=== PATIENT | male | born 1950 | race Asian ===

== ENCOUNTER → 2016-07-06 | Outpatient (CLI) | payer MEDICARE, OTHER ==
[~2016-07-06] MED LIST: ACET-66 GT; ASPI-825 PO; METF500T4 PO; TAMS0.4C32 GT
== END | disposition home or self-care (01) ==
LOC: RADPV 09:32
PROVIDERS: ATTEND Internal Medicine Nephrology
DX: N18.2 Chronic kidney disease, stage 2 (mild) (principal); N28.89 Other specified disorders of kidney and ureter
CPT/HCPCS: 76770

== ENCOUNTER → 2016-08-05 | Outpatient (CLI) | payer MEDICARE, OTHER ==
[~2016-08-05] MED LIST changes: +ASPI81 PO; +ATOR10TA84 PO; -TAMS0.4C32 GT; +TAMS0.4C32 PO
[2016-08-05 10:44] LABS: BASOPHILS % (AUTO) 0.6 % (0.0-2.0); EOSINOPHILS % (AUTO) 6.1 % (1.0-6.0); HEMATOCRIT 43.9 % (41-53); HEMOGLOBIN 14.2 g/dL (13.5-17.5); LYMPHOCYTES # (AUTO) 2.5 K/uL (1.0-4.8); LYMPHOCYTES % (AUTO) 33.5 % (22.0-44.0); MEAN CORPUSCULAR HEMOGLOBIN 28.9 pg (26.0-34.0); MEAN CORPUSCULAR HGB CONC 32.3 G/dL (31.0-37.0); MEAN CORPUSCULAR VOLUME 90 fL (80-100); MONOCYTES # (AUTO) 0.7 K/uL (0.1-1.0); MONOCYTES % (AUTO) 9.5 % (2.0-9.0); NEUTROPHILS # (AUTO) 3.7 K/uL (1.8-7.7); NEUTROPHILS % (AUTO) 50.3 % (40.0-70.0); PLATELET COUNT (AUTO) 221 K/uL (150-450); RED BLOOD CELL COUNT(AUTO) 4.89 MIL/uL (4.50-5.90); RED CELL DISTRIBUTION WIDTH 13.9 % (11.5-14.5); WHITE BLOOD COUNT (AUTO) 7.4 K/uL (4.5-11.0)
[2016-08-05 11:03] LABS: HEMOGLOBIN A1C 7.4 % (4.5-6.2)
[2016-08-05 11:04] LABS: ALBUMIN 3.7 g/dL (3.4-5.0); BILIRUBIN,TOTAL 0.5 mg/dL (0.1-1.0); CALCIUM, TOTAL 9.1 mg/dL (8.8-10.5); CHOL/HDL RATIO 3.9 (4.2-7.3); CREATININE 1.35 mg/dL (0.60-1.30); POTASSIUM 4.9 mmol/L (3.5-5.1); TOTAL PROTEIN, SERUM 8.2 g/dL (6.4-8.2)
[2016-08-06 16:04] LABS: CREATININE, URINE (mALB) 103.7 mg/dL (Not Estab.)
== END | disposition home or self-care (01) ==
LOC: LABPV 08:53
PROVIDERS: ATTEND Family Medicine
DX: I12.9 Hypertensive chronic kidney disease with stage 1 through stage 4 chronic kidney disease, or unspecified chronic kidney disease (principal); N18.3 Chronic kidney disease, stage 3 (moderate); E78.4 Other hyperlipidemia; E11.9 Type 2 diabetes mellitus without complications
CPT/HCPCS: 82043; 82306; 82570; 83036

== ENCOUNTER → 2016-08-20 | Outpatient (CLI) | payer MEDICARE, OTHER ==
[~2016-08-20] MED LIST changes: +GLIP5 PO
[2016-08-20 11:00] LABS: CALCIUM, TOTAL 9.3 mg/dL (8.8-10.5); CHOL/HDL RATIO 4.4 (4.2-7.3); CREATININE 1.3 mg/dL (0.60-1.30); POTASSIUM 4.2 mmol/L (3.5-5.1)
== END | disposition home or self-care (01) ==
LOC: LABPV 08:45
PROVIDERS: ATTEND Internal Medicine Nephrology
DX: I12.9 Hypertensive chronic kidney disease with stage 1 through stage 4 chronic kidney disease, or unspecified chronic kidney disease (principal); N18.2 Chronic kidney disease, stage 2 (mild); E11.22 Type 2 diabetes mellitus with diabetic chronic kidney disease; E78.5 Hyperlipidemia, unspecified; E55.9 Vitamin D deficiency, unspecified
CPT/HCPCS: 82306

== ENCOUNTER 2016-11-13 07:18 | Inpatient (IN) | payer MEDICARE, OTHER ==
[~2016-11-13] VITALS: Ht 167.6 cm; Wt 85.3 kg
[~2016-11-13 07:18] MED LIST changes: -ASPI81 PO; -ATOR10TA84 PO; -GLIP5 PO
[2016-11-13] MEDS ORDERED: ATOR10TA84 PO (07:31)
[2016-11-13] MEDS ORDERED: ASPI81 PO (07:31)
[2016-11-13 07:42] LABS: GLUCOSE,POINT OF CARE 261 MG/DL (70-110)
[2016-11-13] MEDS ORDERED: ONDANSETRON HCL 4 MG/2 ML VIAL IVP ONE (08:00)
[2016-11-13] MEDS ORDERED: BARIUM SULFATE 0.1% SUSPENSION 450 ML BOTTLE PO ONE (08:00)
[2016-11-13] MEDS ORDERED: ALBUTEROL SULFATE 5 MG/ML 20 ML NEB SOLN [BULK] NEB ONE ×2 (08:00→11:30)
[2016-11-13] MEDS ORDERED: SODIUM CHLORIDE 0.9% 1,000 ML IV ONE ×2 (08:00→13:30)
[2016-11-13] MEDS ORDERED: IPRATROPIUM BROMIDE 0.5 MG/2.5 ML NEB SOLUTION NEB ONE ×2 (08:00→11:30)
[2016-11-13 08:18] LABS: BASOPHILS % (AUTO) 0.6 % (0.0-2.0); EOSINOPHILS % (AUTO) 2.1 % (1.0-6.0); HEMOGLOBIN 13.9 g/dL (13.5-17.5); LYMPHOCYTES # (AUTO) 1.7 K/uL (1.0-4.8); LYMPHOCYTES % (AUTO) 17.3 % (22.0-44.0); MEAN CORPUSCULAR HEMOGLOBIN 30.2 pg (26.0-34.0); MEAN CORPUSCULAR HGB CONC 33.9 G/dL (31.0-37.0); MEAN CORPUSCULAR VOLUME 89 fL (80-100); MONOCYTES # (AUTO) 0.6 K/uL (0.1-1.0); MONOCYTES % (AUTO) 5.8 % (2.0-9.0); NEUTROPHILS # (AUTO) 7.5 K/uL (1.8-7.7); NEUTROPHILS % (AUTO) 74.2 % (40.0-70.0); PLATELET COUNT (AUTO) 212 K/uL (150-450); WHITE BLOOD COUNT (AUTO) 10.1 K/uL (4.5-11.0)
[2016-11-13 08:31] LABS: CREATININE 1.77 mg/dL (0.60-1.30); POTASSIUM 4.1 mmol/L (3.5-5.1)
[2016-11-13 08:39] LABS: ALBUMIN 3.9 g/dL (3.4-5.0); BILIRUBIN,TOTAL 0.5 mg/dL (0.1-1.0); TOTAL PROTEIN, SERUM 7.9 g/dL (6.4-8.2)
[2016-11-13] MEDS ORDERED: IOVERSOL 350 MG/ML 100 ML VIAL ONE (08:40)
[2016-11-13] MEDS ORDERED: SODIUM CHLORIDE 0.9% 100 ML ONE (08:40)
[2016-11-13 09:10] LABS: APPEARANCE,URINE TURBID (CLEAR); GLUCOSE, URINE (UA) 100 mg/dL (NEGATIVE); KETONES,URINE TRACE mg/dL (NEGATIVE); LEUKOCYTE ESTERASE ,URINE SMALL (NEGATIVE); OCCULT BLOOD,URINE LARGE (NEGATIVE); PROTEIN,URINE SEE CONFIRM (NEGATIVE)
[2016-11-13 09:11] LABS: ADD UA MICROSCOPIC YES
[2016-11-13 09:13] LABS: SULFOSALICYLIC ACID,URINE 1+ (Negative)
[2016-11-13 09:17] LABS: RBC,URINE Full Field /HPF (0-2); SQUAMOUS EPITHELIAL CELL,UR Few /LPF (None Seen); URIC ACID CRYSTALS,URINE Moderate /LPF (None Seen)
[2016-11-13 10:03] LABS: GLUCOSE,POINT OF CARE 298 MG/DL (70-110)
[2016-11-13] MEDS ORDERED: METOCLOPRAMIDE HCL 5 MG/ML 2 ML VIAL IVP ONE (11:30)
[2016-11-13] MEDS ORDERED: MethylPREDNISolone SOD SUCC 125 MG/2 ML VIAL IVP ONE (11:30)
[2016-11-13] MEDS ORDERED: ACETAMINOPHEN 325 MG TABLET PO ONE (15:15)
[2016-11-13 15:32] LABS: GLUCOSE,POINT OF CARE 307 MG/DL (70-110)
[2016-11-13] MEDS ORDERED: DEXTROSE 50%-WATER 25 GM/50 ML SYRINGE IVP PRN ×2 (16:30→21:00)
[2016-11-13] MEDS ORDERED: ONDANSETRON HCL 4 MG/2 ML VIAL IVP PRN ×2 (16:30→20:45)
[2016-11-13] MEDS ORDERED: INSULIN REGULAR, HUMAN 100 UNITS/ML SQ PRN (16:30)
[2016-11-13] MEDS ORDERED: ACETAMINOPHEN 325 MG TABLET PO PRN ×2 (16:30→20:45)
[2016-11-13 17:30] VITALS: BP 141/61
[2016-11-13 19:07] LABS: GLUCOSE COMMENT 1 Received Meds; GLUCOSE,POINT OF CARE 312 MG/DL (70-110)
[2016-11-13 19:31] VITALS: BP 134/76
[2016-11-13] MEDS ORDERED: IPRATROPIUM BROMIDE 0.5 MG/2.5 ML NEB SOLUTION NEB SCH (20:00)
[2016-11-13] MEDS ORDERED: ALBUTEROL SULFATE 2.5 MG/0.5 ML NEB SOLUTION NEB SCH (20:00)
[2016-11-13] MEDS ORDERED: MAGNESIUM HYDROXIDE SUSPENSION 30 ML UDCUP PO PRN (20:45)
[2016-11-13] MEDS: SODIUM CHLORIDE 0.9% 1,000 ML IV SCH (22:11)
[2016-11-13] MEDS: ATORVASTATIN CALCIUM 20 MG TABLET PO SCH (22:12)
[2016-11-13] MEDS: DOCUSATE SODIUM 100 MG CAPSULE PO SCH (22:12)
[2016-11-13] MEDS: OxyCODONE HCL/ACETAMINOPHEN 5-325 MG TABLET PO PRN (22:13)
[2016-11-13] MEDS: INSULIN ASPART 100 UNITS/ML SQ PRN (22:25)
[2016-11-13] MEDS: IPRATROPIUM BROMIDE 0.5 MG/2.5 ML NEB SOLUTION NEB PRN (23:02)
[2016-11-13] MEDS: ALBUTEROL SULFATE 2.5 MG/0.5 ML NEB SOLUTION NEB PRN (23:02)
[2016-11-13 23:17] VITALS: BP 126/59
[2016-11-14] MEDS: HEPARIN SODIUM,PORCINE 5,000 UNITS/ML VIAL SQ SCH ×4 (00:56→23:30)
[2016-11-14] MEDS: MORPHINE SULFATE 4 MG/ML SYRINGE IVP PRN ×2 (03:35→22:02)
[2016-11-14 04:29] VITALS: BP 147/95
[2016-11-14] MEDS: ALBUTEROL SULFATE 2.5 MG/0.5 ML NEB SOLUTION NEB PRN ×3 (04:31→22:37)
[2016-11-14] MEDS: IPRATROPIUM BROMIDE 0.5 MG/2.5 ML NEB SOLUTION NEB PRN ×3 (04:31→22:37)
[2016-11-14] MEDS: INSULIN ASPART 100 UNITS/ML SQ PRN ×2 (06:30→17:52)
[2016-11-14] MEDS ORDERED: GlipiZIDE 5 MG TABLET PO SCH (06:30)
[2016-11-14 06:53] LABS: GLUCOSE COMMENT 1 Received Meds; GLUCOSE,POINT OF CARE 233 MG/DL (70-110)
[2016-11-14 07:31] VITALS: BP 138/62
[2016-11-14 07:52] LABS: GLUCOSE COMMENT 1 Received Meds; GLUCOSE,POINT OF CARE 220 MG/DL (70-110)
[2016-11-14] MEDS: DOCUSATE SODIUM 100 MG CAPSULE PO SCH ×2 (07:53→19:51)
[2016-11-14] MEDS: ASPIRIN 81 MG CHEWABLE TABLET PO SCH (07:53)
[2016-11-14] MEDS: SODIUM CHLORIDE 0.9% 1,000 ML IV SCH ×2 (10:20→23:30)
[2016-11-14 11:20] VITALS: BP 133/83
[2016-11-14 11:37] LABS: GLUCOSE,POINT OF CARE 102 MG/DL (70-110)
[2016-11-14 15:30] VITALS: BP 141/79
[2016-11-14] MEDS: GlipiZIDE 10 MG TABLET PO SCH (17:50)
[2016-11-14] MEDS: TAMSULOSIN HCL 0.4 MG CAPSULE PO SCH (17:51)
[2016-11-14] MEDS: OxyCODONE HCL/ACETAMINOPHEN 5-325 MG TABLET PO PRN (18:41)
[2016-11-14 19:37] LABS: GLUCOSE,POINT OF CARE 142 MG/DL (70-110)
[2016-11-14] MEDS: ATORVASTATIN CALCIUM 20 MG TABLET PO SCH (19:51)
[2016-11-14] MEDS ORDERED: DEXTROSE 50%-WATER 25 GM/50 ML SYRINGE IVP PRN (23:00)
[2016-11-14 23:12] LABS: GLUCOSE,POINT OF CARE 86 MG/DL (70-110)
[2016-11-14] MEDS: MethylPREDNISolone SOD SUCC 125 MG/2 ML VIAL IVP SCH (23:30)
[2016-11-15 00:33] VITALS: BP 162/87
[2016-11-15] MEDS: INSULIN ASPART 100 UNITS/ML SQ PRN ×4 (05:50→22:47)
[2016-11-15] MEDS: GlipiZIDE 10 MG TABLET PO SCH ×2 (05:50→17:27)
[2016-11-15] MEDS: MethylPREDNISolone SOD SUCC 125 MG/2 ML VIAL IVP SCH ×2 (05:51→11:31)
[2016-11-15 06:28] LABS: GLUCOSE COMMENT 1 Received Meds; GLUCOSE,POINT OF CARE 256 MG/DL (70-110)
[2016-11-15 06:59] VITALS: BP 148/78
[2016-11-15 07:20] LABS: EOSINOPHILS % (AUTO) 0 % (1.0-6.0); HEMATOCRIT 35.6 % (41-53); HEMOGLOBIN 12.2 g/dL (13.5-17.5); LYMPHOCYTES # (AUTO) 0.5 K/uL (1.0-4.8); LYMPHOCYTES % (AUTO) 3.3 % (22.0-44.0); MEAN CORPUSCULAR HEMOGLOBIN 30.6 pg (26.0-34.0); MEAN CORPUSCULAR HGB CONC 34.3 G/dL (31.0-37.0); MEAN CORPUSCULAR VOLUME 89 fL (80-100); MONOCYTES # (AUTO) 0.6 K/uL (0.1-1.0); NEUTROPHILS # (AUTO) 13.5 K/uL (1.8-7.7); PLATELET COUNT (AUTO) 180 K/uL (150-450); WHITE BLOOD COUNT (AUTO) 14.5 K/uL (4.5-11.0)
[2016-11-15 07:23] LABS: NEUTROPHILS % (AUTO) 92.7 % (40.0-70.0)
[2016-11-15 07:39] VITALS: BP 134/70
[2016-11-15] MEDS: TAMSULOSIN HCL 0.4 MG CAPSULE PO SCH (07:45)
[2016-11-15] MEDS: DOCUSATE SODIUM 100 MG CAPSULE PO SCH ×2 (07:45→20:20)
[2016-11-15] MEDS: HEPARIN SODIUM,PORCINE 5,000 UNITS/ML VIAL SQ SCH ×2 (07:45→20:20)
[2016-11-15] MEDS: ASPIRIN 81 MG CHEWABLE TABLET PO SCH (07:46)
[2016-11-15 07:50] LABS: CALCIUM, TOTAL 8.1 mg/dL (8.8-10.5); CREATININE 2.93 mg/dL (0.60-1.30); POTASSIUM 4.9 mmol/L (3.5-5.1)
[2016-11-15 11:10] VITALS: BP 146/83
[2016-11-15 11:47] LABS: GLUCOSE COMMENT 1 Received Meds; GLUCOSE,POINT OF CARE 249 MG/DL (70-110)
[2016-11-15 15:26] VITALS: BP 128/64
[2016-11-15] MEDS: DILTIAZEM HCL 60 MG TABLET PO SCH (16:47)
[2016-11-15] MEDS: SODIUM CHLORIDE 0.9% 1,000 ML IV SCH (16:47)
[2016-11-15] MEDS: MethylPREDNISolone SOD SUCC 40 MG/ML VIAL IVP SCH (17:27)
[2016-11-15 18:43] LABS: GLUCOSE COMMENT 1 Received Meds; GLUCOSE,POINT OF CARE 220 MG/DL (70-110)
[2016-11-15] MEDS: ATORVASTATIN CALCIUM 20 MG TABLET PO SCH (20:20)
[2016-11-15] MEDS: MORPHINE SULFATE 4 MG/ML SYRINGE IVP PRN (20:21)
[2016-11-15 20:30] VITALS: BP 131/77
[2016-11-15] MEDS: IPRATROPIUM BROMIDE 0.5 MG/2.5 ML NEB SOLUTION NEB PRN (21:12)
[2016-11-15] MEDS: ALBUTEROL SULFATE 2.5 MG/0.5 ML NEB SOLUTION NEB PRN (21:12)
[2016-11-15] MEDS: OxyCODONE HCL/ACETAMINOPHEN 5-325 MG TABLET PO PRN (22:40)
[2016-11-15 22:57] LABS: GLUCOSE COMMENT 1 Received Meds; GLUCOSE,POINT OF CARE 213 MG/DL (70-110)
[2016-11-16] VITALS (7 sets, daily range): BP systolic 121–143; BP diastolic 62–94
[2016-11-16] MEDS: MethylPREDNISolone SOD SUCC 40 MG/ML VIAL IVP SCH ×2 (00:17→06:12)
[2016-11-16] MEDS: DILTIAZEM HCL 60 MG TABLET PO SCH ×4 (00:17→23:36)
[2016-11-16] MEDS: MORPHINE SULFATE 4 MG/ML SYRINGE IVP PRN (00:30)
[2016-11-16] MEDS: GlipiZIDE 10 MG TABLET PO SCH ×2 (06:06→16:34)
[2016-11-16] MEDS: INSULIN ASPART 100 UNITS/ML SQ PRN ×4 (06:17→21:06)
[2016-11-16 06:23] LABS: GLUCOSE COMMENT 1 Received Meds; GLUCOSE,POINT OF CARE 182 MG/DL (70-110)
[2016-11-16] MEDS: ASPIRIN 81 MG CHEWABLE TABLET PO SCH (08:49)
[2016-11-16] MEDS: DOCUSATE SODIUM 100 MG CAPSULE PO SCH ×2 (08:49→20:35)
[2016-11-16] MEDS: TAMSULOSIN HCL 0.4 MG CAPSULE PO SCH (08:49)
[2016-11-16] MEDS: HEPARIN SODIUM,PORCINE 5,000 UNITS/ML VIAL SQ SCH ×2 (08:50→20:35)
[2016-11-16] MEDS ORDERED: PredniSONE 20 MG TABLET PO SCH (09:45)
[2016-11-16 12:12] LABS: GLUCOSE,POINT OF CARE 269 MG/DL (70-110)
[2016-11-16] MEDS: PredniSONE 10 MG TABLET PO SCH (12:12)
[2016-11-16] MEDS: ALBUTEROL SULFATE 2.5 MG/0.5 ML NEB SOLUTION NEB PRN (13:24)
[2016-11-16] MEDS: IPRATROPIUM BROMIDE 0.5 MG/2.5 ML NEB SOLUTION NEB PRN (13:24)
[2016-11-16 17:21] LABS: GLUCOSE,POINT OF CARE 225 MG/DL (70-110)
[2016-11-16] MEDS: ATORVASTATIN CALCIUM 20 MG TABLET PO SCH (20:35)
[2016-11-16 21:13] LABS: GLUCOSE,POINT OF CARE 230 MG/DL (70-110)
[2016-11-17 05:00] VITALS: BP 102/57
[2016-11-17 05:53] LABS: EOSINOPHILS % (AUTO) 0 % (1.0-6.0); HEMATOCRIT 34.3 % (41-53); HEMOGLOBIN 11.4 g/dL (13.5-17.5); LYMPHOCYTES # (AUTO) 0.7 K/uL (1.0-4.8); LYMPHOCYTES % (AUTO) 6.4 % (22.0-44.0); MEAN CORPUSCULAR HEMOGLOBIN 30.2 pg (26.0-34.0); MEAN CORPUSCULAR HGB CONC 33.3 G/dL (31.0-37.0); MEAN CORPUSCULAR VOLUME 91 fL (80-100); MONOCYTES % (AUTO) 8.1 % (2.0-9.0); NEUTROPHILS # (AUTO) 9.9 K/uL (1.8-7.7); NEUTROPHILS % (AUTO) 85.5 % (40.0-70.0); PLATELET COUNT (AUTO) 190 K/uL (150-450); RED BLOOD CELL COUNT(AUTO) 3.78 MIL/uL (4.50-5.90); RED CELL DISTRIBUTION WIDTH 13.4 % (11.5-14.5); WHITE BLOOD COUNT (AUTO) 11.6 K/uL (4.5-11.0)
[2016-11-17 05:57] LABS: CALCIUM, TOTAL 7.8 mg/dL (8.8-10.5); CREATININE 1.75 mg/dL (0.60-1.30); POTASSIUM 4.7 mmol/L (3.5-5.1)
[2016-11-17] MEDS: GlipiZIDE 10 MG TABLET PO SCH ×2 (06:04→17:48)
[2016-11-17] MEDS: INSULIN ASPART 100 UNITS/ML SQ PRN ×4 (06:07→20:15)
[2016-11-17 07:00] VITALS: BP_SYST 14; BP_SYST 141; BP_DIAS 76
[2016-11-17 07:47] LABS: GLUCOSE,POINT OF CARE 178 MG/DL (70-110)
[2016-11-17] MEDS: TAMSULOSIN HCL 0.4 MG CAPSULE PO SCH (08:01)
[2016-11-17] MEDS: DILTIAZEM HCL 60 MG TABLET PO SCH ×3 (08:01→23:26)
[2016-11-17] MEDS: ASPIRIN 81 MG CHEWABLE TABLET PO SCH (08:01)
[2016-11-17] MEDS: DOCUSATE SODIUM 100 MG CAPSULE PO SCH ×2 (08:01→20:15)
[2016-11-17] MEDS: PredniSONE 10 MG TABLET PO SCH (08:02)
[2016-11-17] MEDS: HEPARIN SODIUM,PORCINE 5,000 UNITS/ML VIAL SQ SCH ×2 (08:02→20:14)
[2016-11-17 10:58] LABS: GLUCOSE, URINE (UA) NEGATIVE (NEGATIVE); KETONES,URINE NEGATIVE (NEGATIVE); LEUKOCYTE ESTERASE ,URINE NEGATIVE (NEGATIVE); OCCULT BLOOD,URINE MODERATE (NEGATIVE); PROTEIN,URINE NEGATIVE (NEGATIVE)
[2016-11-17 11:24] LABS: ADD UA MICROSCOPIC YES; APPEARANCE,URINE HAZY (CLEAR)
[2016-11-17 11:25] LABS: URIC ACID CRYSTALS,URINE Few /LPF (None Seen); WBC,URINE 0-2 /HPF (0-5)
[2016-11-17 11:26] VITALS: BP 109/49
[2016-11-17 12:07] LABS: GLUCOSE COMMENT 1 Received Meds; GLUCOSE,POINT OF CARE 171 MG/DL (70-110)
[2016-11-17 15:26] VITALS: BP 119/75
[2016-11-17 17:57] LABS: GLUCOSE,POINT OF CARE 193 MG/DL (70-110)
[2016-11-17 19:09] VITALS: BP 123/68
[2016-11-17] MEDS: SODIUM CHLORIDE 0.9% 1,000 ML IV SCH (20:14)
[2016-11-17] MEDS: ATORVASTATIN CALCIUM 20 MG TABLET PO SCH (20:15)
[2016-11-17 23:17] VITALS: BP 110/72
[2016-11-17 23:47] LABS: GLUCOSE COMMENT 1 Received Meds; GLUCOSE,POINT OF CARE 207 MG/DL (70-110)
[2016-11-18 04:23] VITALS: BP 102/76
[2016-11-18] MEDS: GlipiZIDE 10 MG TABLET PO SCH ×2 (06:18→17:47)
[2016-11-18 06:42] LABS: GLUCOSE,POINT OF CARE 80 MG/DL (70-110)
[2016-11-18] MEDS: DOCUSATE SODIUM 100 MG CAPSULE PO SCH (07:52)
[2016-11-18] MEDS: DILTIAZEM HCL 60 MG TABLET PO SCH ×2 (07:52→17:47)
[2016-11-18] MEDS: ASPIRIN 81 MG CHEWABLE TABLET PO SCH (07:54)
[2016-11-18] MEDS: PredniSONE 10 MG TABLET PO SCH (07:55)
[2016-11-18] MEDS: HEPARIN SODIUM,PORCINE 5,000 UNITS/ML VIAL SQ SCH (07:55)
[2016-11-18] MEDS: TAMSULOSIN HCL 0.4 MG CAPSULE PO SCH (07:58)
[2016-11-18 07:59] VITALS: BP 135/77
[2016-11-18 11:26] VITALS: BP 109/69
[2016-11-18 11:37] LABS: GLUCOSE,POINT OF CARE 171 MG/DL (70-110)
[2016-11-18] MEDS: INSULIN ASPART 100 UNITS/ML SQ PRN ×2 (11:41→17:47)
[2016-11-18 15:46] VITALS: BP 140/85
[2016-11-18] MEDS ORDERED: GLIP5 PO (16:35)
[2016-11-18 17:47] LABS: GLUCOSE,POINT OF CARE 214 MG/DL (70-110)
[2016-11-19] MEDS ORDERED: PredniSONE 20 MG TABLET PO SCH (09:00)
== END 2016-11-18 18:15 | disposition home or self-care (01) | DRG 694 ==
LOC: EMS 07:19 → 6N 17:10
PROVIDERS: ADMIT Internal Medicine; ATTEND Internal Medicine
DX: N13.2 Hydronephrosis with renal and ureteral calculous obstruction (principal); I69.351 Hemiplegia and hemiparesis following cerebral infarction affecting right dominant side; J45.901 Unspecified asthma with (acute) exacerbation; N17.9 Acute kidney failure, unspecified; E11.65 Type 2 diabetes mellitus with hyperglycemia; N18.9 Chronic kidney disease, unspecified; E11.22 Type 2 diabetes mellitus with diabetic chronic kidney disease; I25.10 Atherosclerotic heart disease of native coronary artery without angina pectoris; I12.9 Hypertensive chronic kidney disease with stage 1 through stage 4 chronic kidney disease, or unspecified chronic kidney disease; N40.0 Benign prostatic hyperplasia without lower urinary tract symptoms; F03.90 Unspecified dementia, unspecified severity, without behavioral disturbance, psychotic disturbance, mood disturbance, and anxiety; Z91.11 Patient's noncompliance with dietary regimen; Z79.84 Long term (current) use of oral hypoglycemic drugs; Z79.82 Long term (current) use of aspirin; Z79.899 Other long term (current) drug therapy; Z93.1 Gastrostomy status; Z79.891 Long term (current) use of opiate analgesic
CPT/HCPCS: 74177; 76770; 82962; 87086; 93005; 93306; 94640; 94644; 96360; 96361; 96374; 96375; 99285; J1644; J2270; J2405; J2765; J2920; J2930; J7030; J7050

== ENCOUNTER 2016-11-19 21:26 | Emergency (ER) | payer MEDICARE, OTHER ==
[~2016-11-19] VITALS: Ht 162.6 cm; Wt 77.0 kg
[~2016-11-19 21:26] MED LIST changes: -ACET-66 GT; -ASPI-825 PO; +ASPI81 PO; +ATOR10TA84 PO; +GLIP5 PO; -METF500T4 PO
[2016-11-19 21:36] LABS: GLUCOSE,POINT OF CARE 89 MG/DL (70-110)
[2016-11-19 22:04] LABS: BASOPHILS # (AUTO) 0.03 K/uL (0.00-0.20); BASOPHILS % (AUTO) 0.3 % (0.0-2.0); EOSINOPHILS # (AUTO) 0.41 K/uL (0.00-0.70); HEMATOCRIT 40.6 % (41-53); HEMOGLOBIN 13.5 g/dL (13.5-17.5); LYMPHOCYTES % (AUTO) 21.5 % (22.0-44.0); MEAN CORPUSCULAR HEMOGLOBIN 29.9 pg (26.0-34.0); MEAN CORPUSCULAR HGB CONC 33.3 G/dL (31.0-37.0); MEAN CORPUSCULAR VOLUME 90 fL (80-100); MONOCYTES # (AUTO) 0.8 K/uL (0.1-1.0); MONOCYTES % (AUTO) 8.8 % (2.0-9.0); NEUTROPHILS # (AUTO) 6.1 K/uL (1.8-7.7); PLATELET COUNT (AUTO) 251 K/uL (150-450); RED BLOOD CELL COUNT(AUTO) 4.51 MIL/uL (4.50-5.90); RED CELL DISTRIBUTION WIDTH 12.8 % (11.5-14.5); WHITE BLOOD COUNT (AUTO) 9.4 K/uL (4.5-11.0)
[2016-11-19 22:12] LABS: CALCIUM, TOTAL 8.3 mg/dL (8.8-10.5); CREATININE 1.59 mg/dL (0.60-1.30)
[2016-11-19 22:18] LABS: ALBUMIN 2.8 g/dL (3.4-5.0); BILIRUBIN,TOTAL 0.2 mg/dL (0.1-1.0); TOTAL PROTEIN, SERUM 6.5 g/dL (6.4-8.2)
[2016-11-19] MEDS ORDERED: SODIUM CHLORIDE 0.9% 1,000 ML IV ONE (22:30)
[2016-11-19 22:35] LABS: APPEARANCE,URINE CLEAR (CLEAR); GLUCOSE, URINE (UA) NEGATIVE (NEGATIVE); KETONES,URINE NEGATIVE (NEGATIVE); LEUKOCYTE ESTERASE ,URINE NEGATIVE (NEGATIVE); OCCULT BLOOD,URINE TRACE (NEGATIVE); PH,URINE 5.5 (5.0-8.0); PROTEIN,URINE NEGATIVE (NEGATIVE)
[2016-11-19 22:36] LABS: ADD UA MICROSCOPIC YES
[2016-11-19 22:52] LABS: SQUAMOUS EPITHELIAL CELL,UR Rare /LPF (None Seen)
[2016-11-19 22:53] LABS: RBC,URINE 0-2 /HPF (0-2)
[2016-11-19] MEDS ORDERED: BARIUM SULFATE 0.1% SUSPENSION 450 ML BOTTLE PO ONE (23:15)
[2016-11-20 02:17] VITALS: BP 133/81
== END 2016-11-20 02:48 | disposition home or self-care (01) ==
LOC: EMS 21:35
DX: R10.84 Generalized abdominal pain (principal); N28.9 Disorder of kidney and ureter, unspecified; I10 Essential (primary) hypertension; J45.909 Unspecified asthma, uncomplicated; Z87.891 Personal history of nicotine dependence; Z79.82 Long term (current) use of aspirin
CPT/HCPCS: 36415; 74176; 80053; 81001; 82962; 83690; 85025; 96360; 96361; 99285; J7030

== ENCOUNTER → 2017-01-06 | Outpatient (CLI) | payer MEDICARE, OTHER ==
[2017-01-06 11:28] LABS: ALBUMIN 3.9 g/dL (3.4-5.0); BILIRUBIN,TOTAL 0.9 mg/dL (0.1-1.0); CALCIUM, TOTAL 9.5 mg/dL (8.8-10.5); CHOL/HDL RATIO 3.2 (4.2-7.3); CREATININE 1.44 mg/dL (0.60-1.30); POTASSIUM 4.5 mmol/L (3.5-5.1); TOTAL PROTEIN, SERUM 7.9 g/dL (6.4-8.2)
[2017-01-06 11:30] LABS: HEMOGLOBIN A1C 6.7 % (4.5-6.2)
== END | disposition home or self-care (01) ==
LOC: LABPV 09:20
PROVIDERS: ATTEND Internal Medicine Nephrology
DX: E11.22 Type 2 diabetes mellitus with diabetic chronic kidney disease (principal); I12.9 Hypertensive chronic kidney disease with stage 1 through stage 4 chronic kidney disease, or unspecified chronic kidney disease; N18.2 Chronic kidney disease, stage 2 (mild); E55.9 Vitamin D deficiency, unspecified
CPT/HCPCS: 82306; 83036

== ENCOUNTER → 2017-04-22 | Outpatient (CLI) | payer MEDICARE, OTHER ==
[~2017-04-22] MED LIST changes: +GADOBUTROL 1 MMOL/ML 10 ML VIAL IVP ONE
== END | disposition home or self-care (01) ==
LOC: RADMN 08:10
PROVIDERS: ATTEND Family Medicine
DX: M16.11 Unilateral primary osteoarthritis, right hip (principal); K57.30 Diverticulosis of large intestine without perforation or abscess without bleeding; M51.86 Other intervertebral disc disorders, lumbar region; M51.26 Other intervertebral disc displacement, lumbar region; G89.29 Other chronic pain
CPT/HCPCS: 72148; 72197; A9585

== ENCOUNTER → 2017-05-28 | Outpatient (CLI) | payer MEDICARE, OTHER ==
[~2017-05-28] MED LIST changes: -GADOBUTROL 1 MMOL/ML 10 ML VIAL IVP ONE
[2017-05-28 13:30] LABS: CREATININE,URINE RANDOM 162.7 mg/dL (30.0-125.0)
[2017-05-28 13:31] LABS: CALCIUM, TOTAL 9.1 mg/dL (8.8-10.5); CREATININE 1.53 mg/dL (0.60-1.30)
[2017-05-28 14:23] LABS: POTASSIUM 4.5 mmol/L (3.5-5.1)
== END | disposition home or self-care (01) ==
LOC: LABPV 10:13
PROVIDERS: ATTEND Internal Medicine Nephrology
DX: I12.9 Hypertensive chronic kidney disease with stage 1 through stage 4 chronic kidney disease, or unspecified chronic kidney disease (principal); E11.22 Type 2 diabetes mellitus with diabetic chronic kidney disease; E78.5 Hyperlipidemia, unspecified; Z79.82 Long term (current) use of aspirin
CPT/HCPCS: 82306; 82570; 84156

== ENCOUNTER → 2017-07-29 | Outpatient (CLI) | payer MEDICARE, OTHER ==
[2017-07-29 12:26] LABS: BASOPHILS % (AUTO) 0.8 % (0.0-2.0); EOSINOPHILS % (AUTO) 3.7 % (1.0-6.0); HEMOGLOBIN 16.1 g/dL (13.5-17.5); LYMPHOCYTES # (AUTO) 3.2 K/uL (1.0-4.8); LYMPHOCYTES % (AUTO) 38.6 % (22.0-44.0); MEAN CORPUSCULAR HEMOGLOBIN 29.7 pg (26.0-34.0); MEAN CORPUSCULAR HGB CONC 34.3 G/dL (31.0-37.0); MEAN CORPUSCULAR VOLUME 86 fL (80-100); MONOCYTES # (AUTO) 0.7 K/uL (0.1-1.0); MONOCYTES % (AUTO) 8.6 % (2.0-9.0); NEUTROPHILS % (AUTO) 48.3 % (40.0-70.0); PLATELET COUNT (AUTO) 215 K/uL (150-450); RED BLOOD CELL COUNT(AUTO) 5.44 MIL/uL (4.50-5.90); RED CELL DISTRIBUTION WIDTH 13.3 % (11.5-14.5)
[2017-07-29 12:34] LABS: HEMOGLOBIN A1C 9.1 % (4.5-6.2)
[2017-07-29 12:38] LABS: BILIRUBIN,TOTAL 0.6 mg/dL (0.1-1.0); CALCIUM, TOTAL 9.5 mg/dL (8.8-10.5); CHOL/HDL RATIO 5.2 (4.2-7.3); CREATININE 1.43 mg/dL (0.60-1.30); POTASSIUM 4.6 mmol/L (3.5-5.1); TOTAL PROTEIN, SERUM 8.5 g/dL (6.4-8.2)
== END | disposition home or self-care (01) ==
LOC: LABPV 09:24
PROVIDERS: ATTEND Family Medicine
DX: I10 Essential (primary) hypertension (principal); E11.9 Type 2 diabetes mellitus without complications; E78.4 Other hyperlipidemia; Z79.899 Other long term (current) drug therapy
CPT/HCPCS: 82043; 82306; 82570; 83036